=== PATIENT | female | born 1935 | race Caucasian/White ===

== ENCOUNTER 2017-01-07 15:33 | Emergency (ER) | payer MEDICARE, OTHER ==
[2017-01-07 16:50] LABS: #Basophils 0.1 thou/uL (0.0-0.2); #Lymphocytes 1.5 thou/uL (1.20-3.40); #Neutrophils 6.9 thou/uL (1.40-6.50); %Basophils 0.7 % (0.0-1.0); %Eosinophils 0.5 % (0.0-10.0); %Lymphocytes 15.7 % (21.0-51.0); %Neutrophils 73.1 % (42.0-75.0); Hemoglobin 14.7 g/dL (12.0-16.0); Mean Corpuscular HGB CONC 32.5 g/dL (32.0-36.0); Mean Corpuscular Hemoglobin 30.2 pg (27.0-31.0); Mean Corpuscular Volume 92.9 fl (81.0-99.0); Mean Platelet Volume 7.6 fL (7.4-10.4); Platelet Count 211 thou/uL (130-400); RBC Distribution Width 13.2 % (11.5-14.5); Red Blood Cell (RBC) Count 4.87 mill/uL (4.20-5.40); White Blood Cell (WBC) Count 9.5 thou/uL (4.8-10.8)
[2017-01-07 17:01] LABS: ALT (SGPT) 12 U/L (8-55); AST (SGOT) 13 U/L (5-34); Albumin 3.7 g/dL (3.4-4.8); Alkaline Phosphatase 102 U/L (40-150); Anion Gap 16 mmol/L (10-20); BUN (Urea Nitrogen) 8 mg/dL (9.8-20.1); Bilirubin, Total 0.4 mg/dL (0.2-1.2); Calc. Creatinine Clearance 0 mL/min (70-130); Calcium 8.8 mg/dL (7.8-10.44); Carbon Dioxide 23 mmol/L (23-31); Chloride 104 mmol/L (98-107); Estimated GFR-MDRD 84; Globulin 3.6 g/dL (2.4-3.5); Glucose 122 mg/dL (83-110); Potassium 3.7 mmol/L (3.5-5.1); Protein, Total 7.3 g/dL (6.0-8.3); Sodium 139 mmol/L (136-145)
[2017-01-07 17:04] LABS: Bilirubin Negative (Negative); Blood, Urine Moderate (Negative); Clarity Clear (Clear); Glucose, Urine (Dipstick) Negative (Negative); Leukocyte Negative (Negative); Nitrite Negative (Negative); Protein, Urine (Dipstick) Trace mg/dL (Neg-Trace); Urobilinogen 0.2 mg/dL (0.2-1.0); pH, Urine 8.5 (5.0-9.0)
[2017-01-07] MEDS ORDERED: Acetaminophen 500 MG TAB ONE (17:06)
[2017-01-07 17:14] LABS: Squamous Epithelial 0-3 HPF (0-3); WBC/HPF 0-3 HPF (0-3)
--- NOTE | 2017-01-07 19:27 | RAD ---
SITTING PORTABLE FRONTAL CHEST RADIOGRAPH 01/07/17 COMPARISON: 09/18/14 HISTORY: Evaluate for neck pain, fever. FINDINGS: Mild elevation of the right hemidiaphragm noted. No pneumothorax, pleural fluid, focal consolidation , or alveolar edema. There is surgical hardware overlies the right humeral head. IMPRESSION: Stable appearance of the chest - no acute findings. POS: [facility]
--- NOTE | 2017-01-07 21:44 | CT ---
CT OF CERVICAL SPINE 01/07/17 COMPARISON: None. HISTORY: Five day history of neck pain, no history of trauma or injury. TECHNIQUE: Serial axial CT imaging at 2.5 mm intervals from the thoracic inlet through the skull base without c ontrast. Coronal and sagittal reformatted imaging obtained. FINDINGS: Evaluation for central canal and/or neural foraminal stenosis is limited on routine CT. The imaged lung apices demonstrate partially visualized increased linear density within medial left upper lobe on image 74 and medial right upper lobe on image 74, incompletely assessed on this examin ation. There is moderate degenerative change at the atlantoaxial interspace. The craniocervical junction an d cervicothoracic junction appear intact. The imaged paranasal sinuses and mastoid air cells are well aerated. There is atherosclerotic calcif ication of the cavernous carotid arteries. Bilateral common carotid arteries are medialized and demonstrate a retropharyngeal course. The C1-2 articulation, dens, and occipital condyles demonstrate no acute findings. There is degenera tive osteophyte formation at the C1-2 articulation on the left. There is a metallic structure associated with the skin and soft tissues just to the left of midline posteriorly at the axial level of the C3 vertebral body, etiology uncertain. C2-3: Bilateral facet hypertrophy, right greater than left. No osseous cause of significant central canal or neural foraminal stenosis. C3-4: Bilateral facet hypertrophy, left greater than right. Probable mild left neural foraminal sten osis. No osseous cause of significant central canal or right neural foraminal stenosis. C4-5: Bilateral facet hypertrophy. Right sided uncovertebral osteophyte formation. Moderate right an d mild left neural foraminal stenosis. Probable mild central canal stenosis. C5-6: Bilateral facet and uncovertebral osteophyte formation. At least mild bilateral neural foramin al stenosis. Posterior osteophyte noted with at least mild central canal stenosis. C6-7: Prominent central posterior osteophyte. Bilateral facet and uncovertebral osteophyte formation , mild. Mild/moderate central canal stenosis suspected. Mild bilateral neural foraminal stenosis vita pected. C7-T1: Bilateral facet hypertrophy. No osseous cause of significant central canal and neural foramin al stenosis. No worrisome lytic or blastic bone lesion. No acute fracture or evidence of dislocatio n. IMPRESSION: 1. Linear density in both upper lobes, nonspecific and not well assessed on this exam. Followup chest CT on a nonemergent basis is advised for full characterization. 2. Multilevel cervical spine degenerative change with no acute fracture or evidence of dislocat ion. If symptoms persists, followup cervical spine MRI or cervical spine CT myelogram advised. Code T POS: [facility]
== END 2017-01-07 20:15 | disposition short-term general hospital (02) ==
LOC: NAV ERS 15:33
DX: M54.2 Cervicalgia (principal); R50.9 Fever, unspecified; E78.5 Hyperlipidemia, unspecified; I10 Essential (primary) hypertension; M19.90 Unspecified osteoarthritis, unspecified site; F41.9 Anxiety disorder, unspecified; F32.9 Major depressive disorder, single episode, unspecified; Z79.01 Long term (current) use of anticoagulants; Z79.899 Other long term (current) drug therapy
CPT/HCPCS: 51701; 71010; 72125; 80053; 81003; 81015; 85025; 85652; 87040; 94760; A4353

== ENCOUNTER 2018-02-10 07:54 | Outpatient (CLI) | payer MEDICARE, OTHER ==
[2018-02-10 08:05] LABS: #Basophils 0.1 thou/uL (0.0-0.2); #Eosinphils 0.3 thou/uL (0.0-0.7); #Lymphocytes 1.7 thou/uL (1.20-3.40); #Neutrophils 4.7 thou/uL (1.40-6.50); %Basophils 1.1 % (0.0-1.0); %Eosinophils 4.2 % (0.0-10.0); %Lymphocytes 21.7 % (21.0-51.0); %Monocytes 12.5 % (0.0-10.0); %Neutrophils 60.6 % (42.0-75.0); Hemoglobin 10.9 g/dL (12.0-16.0); Mean Corpuscular HGB CONC 32.6 g/dL (32.0-36.0); Mean Corpuscular Hemoglobin 31.2 pg (27.0-31.0); Mean Corpuscular Volume 95.8 fL (78.0-98.0); Mean Platelet Volume 7.9 fL (7.4-10.4); Platelet Count 216 thou/uL (130-400); RBC Distribution Width 12.9 % (11.5-14.5); Red Blood Cell (RBC) Count 3.49 mill/uL (4.20-5.40); White Blood Cell (WBC) Count 7.7 thou/uL (4.8-10.8)
== END 2018-02-10 07:55 | disposition home or self-care (01) ==
LOC: NAV NNR 07:54
PROVIDERS: ATTEND Internal Medicine
DX: A41.9 Sepsis, unspecified organism (principal); R50.9 Fever, unspecified
CPT/HCPCS: 36415; 85025

== ENCOUNTER 2019-02-07 12:32 | Outpatient (CLI) | payer MEDICARE, OTHER ==
[2019-02-07 12:58] LABS: #Eosinphils 0.2 thou/uL (0.0-0.7); #Monocytes 0.7 thou/uL (0.11-0.59); %Basophils 0.6 % (0.0-1.0); %Eosinophils 3.1 % (0.0-10.0); %Lymphocytes 24.8 % (21.0-51.0); %Monocytes 8.3 % (0.0-10.0); %Neutrophils 63.2 % (42.0-75.0); Hemoglobin 14.3 g/dL (12.0-16.0); Mean Corpuscular HGB CONC 32.1 g/dL (32.0-36.0); Mean Corpuscular Hemoglobin 31.3 pg (27.0-31.0); Mean Corpuscular Volume 97.5 fL (78.0-98.0); Mean Platelet Volume 7.2 fL (7.4-10.4); Platelet Count 226 thou/uL (130-400); RBC Distribution Width 12.5 % (11.5-14.5); Red Blood Cell (RBC) Count 4.57 mill/uL (4.20-5.40)
[2019-02-07 13:09] LABS: Anion Gap 17 mmol/L (10-20); BUN (Urea Nitrogen) 16 mg/dL (9.8-20.1); Calc. Creatinine Clearance 0 mL/min (70-130); Calcium 9.6 mg/dL (7.8-10.44); Carbon Dioxide 27 mmol/L (23-31); Chloride 100 mmol/L (98-107); Estimated GFR-MDRD 58; Glucose 121 mg/dL (83-110); Sodium 140 mmol/L (136-145)
== END 2019-02-07 12:33 | disposition home or self-care (01) ==
LOC: NAVSJIPCSP 12:32
PROVIDERS: ATTEND Family Medicine
DX: J06.9 Acute upper respiratory infection, unspecified (principal)
CPT/HCPCS: 36415; 80048; 85025

== ENCOUNTER 2020-12-17 14:46 | Emergency (ER) | payer MEDICARE, OTHER ==
[2020-12-17] MEDS ORDERED: Acetaminophen 500 MG TAB ONE (15:54)
[2020-12-17 16:29] LABS: #Eosinphils 0.1 thou/uL (0.0-0.7); #Lymphocytes 1.3 thou/uL (1.20-3.40); #Monocytes 0.6 thou/uL (0.11-0.59); #Neutrophils 4.2 thou/uL (1.40-6.50); %Basophils 0.7 % (0.0-1.0); %Eosinophils 2.3 % (0.0-10.0); %Lymphocytes 20.5 % (21.0-51.0); %Monocytes 10.1 % (0.0-10.0); %Neutrophils 66.5 % (42.0-75.0); Hemoglobin 12.7 g/dL (12.0-16.0); Mean Corpuscular Hemoglobin 29.7 pg (27.0-31.0); Platelet Count 334 thou/uL (130-400); RBC Distribution Width 14.1 % (11.5-14.5); Red Blood Cell (RBC) Count 4.29 mill/uL (4.20-5.40); White Blood Cell (WBC) Count 6.4 thou/uL (4.8-10.8)
[2020-12-17 16:34] LABS: ALT (SGPT) 12 U/L (8-55); AST (SGOT) 17 U/L (5-34); Albumin 3.6 g/dL (3.4-4.8); Alkaline Phosphatase 46 U/L (40-110); Anion Gap 12 mmol/L (10-20); BUN (Urea Nitrogen) 23 mg/dL (9.8-20.1); Bilirubin, Total 0.3 mg/dL (0.2-1.2); Calc. Creatinine Clearance 0 mL/min (70-130); Calcium 9.6 mg/dL (7.8-10.44); Carbon Dioxide 27 mmol/L (23-31); Chloride 104 mmol/L (98-107); Globulin 3.5 g/dL (2.4-3.5); Glucose 120 mg/dL (83-110); Potassium 4.1 mmol/L (3.5-5.1); Protein, Total 7.1 g/dL (5.8-8.1); Sodium 139 mmol/L (136-145)
== END 2020-12-17 17:25 | disposition home or self-care (01) ==
LOC: NAV ERS 14:46
DX: J06.9 Acute upper respiratory infection, unspecified (principal); Z20.822 Contact with and (suspected) exposure to COVID-19; E78.5 Hyperlipidemia, unspecified; I10 Essential (primary) hypertension; Z79.899 Other long term (current) drug therapy
CPT/HCPCS: 71045; 80053; 83605; 85025; 87040

== ENCOUNTER 2020-12-22 13:45 | Outpatient (CLI) | payer MEDICARE, OTHER | END 2020-12-22 13:46 | disposition home or self-care (01) | LOC: NAV RAD 13:45 | PROVIDERS: ATTEND Family Medicine | DX: R05 Cough (principal) | CPT/HCPCS: 71046 ==

== ENCOUNTER 2021-01-12 10:01 | Outpatient (CLI) | payer MEDICARE, OTHER | END 2021-01-12 10:02 | disposition home or self-care (01) | LOC: NAV CT 10:01 | PROVIDERS: ATTEND Urology | DX: N13.2 Hydronephrosis with renal and ureteral calculous obstruction (principal); K57.30 Diverticulosis of large intestine without perforation or abscess without bleeding; I70.0 Atherosclerosis of aorta; I70.8 Atherosclerosis of other arteries; N28.1 Cyst of kidney, acquired; Z96.0 Presence of urogenital implants | CPT/HCPCS: 74176 ==

== ENCOUNTER 2022-03-30 01:49 | Emergency (ER) | payer MEDICARE, OTHER ==
[2022-03-30] MEDS ORDERED: Acetaminophen 500 MG TAB ONE (02:45)
== END 2022-03-30 03:00 | disposition home or self-care (01) ==
LOC: NAV ERS 01:49
DX: H60.91 Unspecified otitis externa, right ear (principal); E78.5 Hyperlipidemia, unspecified; I10 Essential (primary) hypertension; Z79.899 Other long term (current) drug therapy
CPT/HCPCS: 99283

== ENCOUNTER 2022-06-06 14:40 | Emergency (ER) | payer MEDICARE, OTHER ==
[2022-06-06 15:52] LABS: #Basophils 0.1 thou/uL (0.0-0.2); #Eosinphils 0.2 thou/uL (0.0-0.7); #Lymphocytes 1.6 thou/uL (1.20-3.40); #Monocytes 0.7 thou/uL (0.11-0.59); #Neutrophils 2.5 thou/uL (1.40-6.50); %Basophils 1.4 % (0.0-1.0); %Eosinophils 3.6 % (0.0-10.0); %Lymphocytes 32.1 % (21.0-51.0); %Neutrophils 49.9 % (42.0-75.0); Hemoglobin 14.7 g/dL (12.0-16.0); Mean Corpuscular HGB CONC 31.9 g/dL (32.0-36.0); Mean Corpuscular Hemoglobin 31.6 pg (27.0-31.0); Mean Corpuscular Volume 99.1 fl (78.0-98.0); Mean Platelet Volume 7.7 fL (7.4-10.4); Platelet Count 212 10x3/uL (130-400); RBC Distribution Width 13.6 % (11.5-14.5); Red Blood Cell (RBC) Count 4.65 mill/uL (4.20-5.40)
[2022-06-06 15:56] LABS: INR-International Normal Ratio 1.1; Prothrombin Time 14.2 sec (12.0-14.7)
[2022-06-06 15:59] LABS: D-Dimer Test 0.43 *mcg/mL (0.27-0.43)
[2022-06-06 16:08] LABS: ALT (SGPT) 11 U/L (8-55); AST (SGOT) 16 U/L (5-34); Albumin 3.8 g/dL (3.4-4.8); Alkaline Phosphatase 63 U/L (40-110); Anion Gap 16 mmol/L (10-20); BUN (Urea Nitrogen) 26 mg/dL (9.8-20.1); Bilirubin, Total 0.3 mg/dL (0.2-1.2); Calc. Creatinine Clearance 0 mL/min (70-130); Calcium 9.6 mg/dL (7.8-10.44); Carbon Dioxide 21 mmol/L (23-31); Chloride 109 mmol/L (98-107); Estimated GFR 71; Globulin 2.7 g/dL (2.4-3.5); Glucose 105 mg/dL (83-110); Potassium 4.1 mmol/L (3.5-5.1); Protein, Total 6.5 g/dL (5.8-8.1); Sodium 142 mmol/L (136-145)
== END 2022-06-06 17:23 | disposition home or self-care (01) ==
LOC: NAV ERS 14:40
DX: S29.011A Strain of muscle and tendon of front wall of thorax, initial encounter (principal); F41.9 Anxiety disorder, unspecified; I10 Essential (primary) hypertension; E78.5 Hyperlipidemia, unspecified; E11.9 Type 2 diabetes mellitus without complications; Z86.711 Personal history of pulmonary embolism; Z79.01 Long term (current) use of anticoagulants; Z79.899 Other long term (current) drug therapy; Z79.84 Long term (current) use of oral hypoglycemic drugs; X58.XXXA Exposure to other specified factors, initial encounter
CPT/HCPCS: 36415; 71046; 80053; 84484; 85025; 85379; 85610; 93005

== ENCOUNTER 2023-12-14 09:35 | Emergency (ER) | payer MEDICARE, OTHER ==
[2023-12-14] MEDS ORDERED: predniSONE 20 MG TAB ONE (10:28)
[2023-12-14] MEDS ORDERED: hydrOXYzine 25 MG TAB ONE (10:28)
== END 2023-12-14 10:46 | disposition home or self-care (01) ==
LOC: NAV ERS 09:35
DX: L29.9 Pruritus, unspecified (principal); I10 Essential (primary) hypertension
CPT/HCPCS: 99282; J7512

== ENCOUNTER 2024-01-26 04:01 | Emergency (ER) | payer MEDICARE, OTHER ==
[2024-01-26 04:49] LABS: Hematocrit 43.1 % (36.0-47.0); Hemoglobin 14.3 g/dL (12.0-16.0); Mean Corpuscular HGB CONC 33.2 g/dL (32.0-36.0); Mean Corpuscular Hemoglobin 30.7 pg (27.0-31.0); Mean Corpuscular Volume 92.4 fl (78.0-98.0); Platelet Count 218 10x3/uL (130-400); RBC Distribution Width 12.8 % (11.5-14.5); Red Blood Cell (RBC) Count 4.67 mill/uL (4.20-5.40); White Blood Cell (WBC) Count 7.6 10x3/uL (4.8-10.8)
[2024-01-26 04:50] LABS: #Eosinphils 0.1 thou/uL (0.0-0.7); #Lymphocytes 0.3 thou/uL (1.20-3.40); #Monocytes 0.6 thou/uL (0.11-0.59); #Neutrophils 6.5 thou/uL (1.40-6.50); %Basophils 0.5 % (0.0-1.0); %Eosinophils 1.4 % (0.0-10.0); %Lymphocytes 4.5 % (21.0-51.0); %Monocytes 8.2 % (0.0-10.0); %Neutrophils 85.4 % (42.0-75.0)
[2024-01-26 04:54] LABS: INR-International Normal Ratio 1.6; Prothrombin Time 19.1 sec (12.0-14.7)
[2024-01-26 05:06] LABS: Anion Gap 17 mmol/L (10-20); BUN (Urea Nitrogen) 17 mg/dL (9.8-20.1); Calc. Creatinine Clearance 0 mL/min (70-130); Calcium 9.4 mg/dL (7.6-10.4); Carbon Dioxide 20 mmol/L (23-31); Chloride 103 mmol/L (98-107); Estimated GFR 40; Glucose 160 mg/dL (83-110); Potassium 3.2 mmol/L (3.5-5.1); Sodium 137 mmol/L (136-145)
[2024-01-26] MEDS ORDERED: Potassium Chloride 10 MEQ/100 ML PREMIX BAG ONE (06:13)
[2024-01-26] MEDS ORDERED: Potassium Chloride 20 MEQ TAB ONE (06:28)
== END 2024-01-26 09:00 | disposition home or self-care (01) ==
LOC: NAV ERS 04:01
DX: N17.9 Acute kidney failure, unspecified (principal); E87.6 Hypokalemia; R51.9 Headache, unspecified; M54.9 Dorsalgia, unspecified; I10 Essential (primary) hypertension; E78.5 Hyperlipidemia, unspecified; I48.91 Unspecified atrial fibrillation; Z79.899 Other long term (current) drug therapy; Z79.01 Long term (current) use of anticoagulants; W01.0XXA Fall on same level from slipping, tripping and stumbling without subsequent striking against object, initial encounter; Y92.009 Unspecified place in unspecified non-institutional (private) residence as the place of occurrence of the external cause
CPT/HCPCS: 70450; 71260; 72125; 74177; 80048; 85025; 85610; 93005; 96365; 96366; J3480

== ENCOUNTER 2024-02-02 13:10 | Inpatient (IN) | payer MEDICARE ==
[2024-02-02] MEDS ORDERED: Furosemide 20 MG TAB PO PRN (15:44)
[2024-02-02] MEDS ORDERED: Senokot S 8.6-50 MG TAB PO PRN (15:50)
[2024-02-02] MEDS: Ondansetron ODT 4 MG TAB PO PRN (17:15)
[2024-02-02] MEDS: ALPRAZolam 0.5 MG TAB PO SCH (20:47)
[2024-02-02] MEDS: Montelukast Sodium 10 mg Tablet PO SCH (20:47)
[2024-02-02] MEDS: Metoclopramide HCl 10 MG TAB PO SCH (20:47)
[2024-02-02] MEDS: Pantoprazole DR 40 MG TAB PO SCH (20:47)
[2024-02-02] MEDS: Fenofibrate Nanocrystallized 145 MG TAB PO SCH (20:48)
[2024-02-02] MEDS: Apixaban 5 MG TAB PO SCH (20:48)
[2024-02-02] MEDS: Amitriptyline HCl 10 MG TAB PO SCH (20:48)
[2024-02-02] MEDS ORDERED: Pantoprazole 40 MG VIAL IVP SCH (21:00)
[2024-02-03 06:08] LABS: ALT (SGPT) 9 U/L (8-55); AST (SGOT) 17 U/L (5-34); Albumin 2.5 g/dL (3.4-4.8); Alkaline Phosphatase 48 U/L (40-110); Anion Gap 12 mmol/L (10-20); BUN (Urea Nitrogen) 13 mg/dL (9.8-20.1); Bilirubin, Total 0.4 mg/dL (0.2-1.2); Calc. Creatinine Clearance 63 mL/min (70-130); Calcium 9.7 mg/dL (7.8-10.44); Carbon Dioxide 31 mmol/L (23-31); Chloride 102 mmol/L (98-107); Estimated GFR 68; Globulin 3.3 g/dL (2.4-3.5); Glucose 106 mg/dL (83-110); Protein, Total 5.8 g/dL (5.8-8.1); Sodium 141 mmol/L (136-145)
[2024-02-03 06:13] LABS: #Basophils 0.1 thou/uL (0.0-0.2); #Eosinophils 0.2 thou/uL (0.0-0.7); #Lymphocytes 0.8 thou/uL (1.20-3.40); #Monocytes 0.6 thou/uL (0.11-0.59); #Neutrophils 1.9 thou/uL (1.40-6.50); %Basophils 1.5 % (0.0-1.0); %Eosinophils 5.3 % (0.0-10.0); %Monocytes 15.9 % (0.0-10.0); %Neutrophils 54.4 % (42.0-75.0); Hematocrit 39.5 % (36.0-47.0); Hemoglobin 12.4 g/dL (12.0-16.0); Mean Corpuscular HGB CONC 31.4 g/dL (32.0-36.0); Mean Corpuscular Hemoglobin 29.4 pg (27.0-31.0); Mean Corpuscular Volume 93.6 fl (78.0-98.0); Mean Platelet Volume 6.7 fL (7.4-10.4); Platelet Count 258 10x3/uL (130-400); RBC Distribution Width 12.8 % (11.5-14.5); Red Blood Cell (RBC) Count 4.22 mill/uL (4.20-5.40); White Blood Cell (WBC) Count 3.5 10x3/uL (4.8-10.8)
[2024-02-03] MEDS: Fluticasone Propionate Nasal Spray 16 gm Bottle NASAL SCH (08:31)
[2024-02-03] MEDS: Loratadine 10 MG TAB PO SCH (08:32)
[2024-02-03] MEDS: Escitalopram Oxalate 20 mg Tablet PO SCH (08:32)
[2024-02-03] MEDS: Lisinopril 20 MG TAB PO SCH (11:01)
[2024-02-04] MEDS ORDERED: Lisinopril 20 MG TAB PO SCH (10:07)
[2024-02-04] MEDS: Lisinopril 20 MG TAB PO SCH (11:08)
[2024-02-05] MEDS: Lisinopril 20 MG TAB PO SCH (09:35)
[2024-02-08 06:22] LABS: Anion Gap 11 mmol/L (10-20); BUN (Urea Nitrogen) 18 mg/dL (9.8-20.1); Calc. Creatinine Clearance 58 mL/min (70-130); Carbon Dioxide 29 mmol/L (23-31); Chloride 104 mmol/L (98-107); Estimated GFR 62; Glucose 119 mg/dL (83-110); Sodium 140 mmol/L (136-145)
[2024-02-08 06:39] LABS: #Eosinophils 0.2 thou/uL (0.0-0.7); #Lymphocytes 0.8 thou/uL (1.20-3.40); #Monocytes 0.6 thou/uL (0.11-0.59); #Neutrophils 1.7 thou/uL (1.40-6.50); %Basophils 1.4 % (0.0-1.0); %Eosinophils 6.5 % (0.0-10.0); %Neutrophils 50.1 % (42.0-75.0); Hematocrit 36.4 % (36.0-47.0); Hemoglobin 11.6 g/dL (12.0-16.0); Mean Corpuscular HGB CONC 31.9 g/dL (32.0-36.0); Mean Corpuscular Hemoglobin 29.8 pg (27.0-31.0); Mean Corpuscular Volume 93.4 fl (78.0-98.0); Platelet Count 255 10x3/uL (130-400); Red Blood Cell (RBC) Count 3.89 mill/uL (4.20-5.40); White Blood Cell (WBC) Count 3.3 10x3/uL (4.8-10.8)
[2024-02-08] MEDS ORDERED: traMADol HCl 50 MG TAB PO PRN (14:39)
[2024-02-08] MEDS: Acetaminophen 500 MG TAB PO SCH (15:18)
[2024-02-08] MEDS: Diclofenac 1% 100 GM Topical GEL TP SCH (16:25)
[2024-02-08] MEDS: Metoclopramide HCl 10 MG TAB PO SCH (16:25)
[2024-02-11] MEDS: Acetaminophen 325 MG TAB PO PRN (21:20)
[2024-02-15 05:43] LABS: #Basophils 0.1 thou/uL (0.0-0.2); #Eosinophils 0.3 thou/uL (0.0-0.7); #Lymphocytes 1.1 thou/uL (1.20-3.40); #Monocytes 0.6 thou/uL (0.11-0.59); #Neutrophils 2.5 thou/uL (1.40-6.50); %Basophils 1.1 % (0.0-1.0); %Eosinophils 6.6 % (0.0-10.0); %Monocytes 12.8 % (0.0-10.0); %Neutrophils 55.4 % (42.0-75.0); Hematocrit 36.3 % (36.0-47.0); Hemoglobin 11.8 g/dL (12.0-16.0); Mean Corpuscular HGB CONC 32.5 g/dL (32.0-36.0); Mean Corpuscular Hemoglobin 29.7 pg (27.0-31.0); Mean Corpuscular Volume 91.5 fl (78.0-98.0); Mean Platelet Volume 6.8 fL (7.4-10.4); Platelet Count 220 10x3/uL (130-400); RBC Distribution Width 13.7 % (11.5-14.5); Red Blood Cell (RBC) Count 3.97 mill/uL (4.20-5.40); White Blood Cell (WBC) Count 4.5 10x3/uL (4.8-10.8)
[2024-02-15 05:55] LABS: Anion Gap 10 mmol/L (10-20); BUN (Urea Nitrogen) 15 mg/dL (9.8-20.1); Calc. Creatinine Clearance 58 mL/min (70-130); Calcium 9.6 mg/dL (7.8-10.44); Carbon Dioxide 27 mmol/L (23-31); Chloride 108 mmol/L (98-107); Estimated GFR 62; Glucose 113 mg/dL (83-110); Potassium 4.3 mmol/L (3.5-5.1); Sodium 141 mmol/L (136-145)
[2024-02-16 06:04] VITALS: BMI 29.7
[2024-02-16] MEDS: Lisinopril 10 MG TAB PO SCH (08:48)
[2024-02-16] MEDS: traMADol HCl 50 MG TAB PO SCH (08:52)
[2024-02-18] MEDS ORDERED: traMADol HCl 50 MG TAB PO PRN (09:32)
[2024-02-18] MEDS: traMADol HCl 50 MG TAB PO SCH (11:55)
[2024-02-19 07:04] VITALS: BMI 31.5
[2024-02-22 05:52] LABS: #Eosinophils 0.4 thou/uL (0.0-0.7); #Lymphocytes 1.1 thou/uL (1.20-3.40); #Monocytes 0.5 thou/uL (0.11-0.59); #Neutrophils 1.8 thou/uL (1.40-6.50); %Basophils 1.2 % (0.0-1.0); %Eosinophils 10.4 % (0.0-10.0); %Lymphocytes 29.1 % (21.0-51.0); %Monocytes 12.8 % (0.0-10.0); %Neutrophils 46.5 % (42.0-75.0); Hematocrit 39.3 % (36.0-47.0); Hemoglobin 12.5 g/dL (12.0-16.0); Mean Corpuscular HGB CONC 31.7 g/dL (32.0-36.0); Mean Corpuscular Hemoglobin 29.5 pg (27.0-31.0); Mean Corpuscular Volume 93.1 fl (78.0-98.0); Mean Platelet Volume 7.6 fL (7.4-10.4); Platelet Count 204 10x3/uL (130-400); RBC Distribution Width 14.1 % (11.5-14.5); Red Blood Cell (RBC) Count 4.22 mill/uL (4.20-5.40); White Blood Cell (WBC) Count 3.9 10x3/uL (4.8-10.8)
[2024-02-22 06:04] LABS: ALT (SGPT) 12 U/L (8-55); AST (SGOT) 20 U/L (5-34); Albumin 3.1 g/dL (3.4-4.8); Alkaline Phosphatase 54 U/L (40-110); Anion Gap 14 mmol/L (10-20); BUN (Urea Nitrogen) 22 mg/dL (9.8-20.1); Bilirubin, Total 0.4 mg/dL (0.2-1.2); Calc. Creatinine Clearance 55 mL/min (70-130); Calcium 9.8 mg/dL (7.8-10.44); Carbon Dioxide 28 mmol/L (23-31); Chloride 104 mmol/L (98-107); Estimated GFR 55; Globulin 3.5 g/dL (2.4-3.5); Glucose 106 mg/dL (83-110); Protein, Total 6.6 g/dL (5.8-8.1); Sodium 142 mmol/L (136-145)
[2024-02-22 13:45] VITALS: BP 111/57; TEMP 98.1
== END 2024-02-22 15:07 | disposition home or self-care (01) | DRG 947 ==
LOC: NAV ACUTE 15:16
PROVIDERS: ADMIT Family Medicine; ATTEND Family Medicine
DX: R53.81 Other malaise (principal); J96.01 Acute respiratory failure with hypoxia; E11.43 Type 2 diabetes mellitus with diabetic autonomic (poly)neuropathy; K31.84 Gastroparesis; M19.90 Unspecified osteoarthritis, unspecified site; F32.A Depression, unspecified; F41.1 Generalized anxiety disorder; K43.9 Ventral hernia without obstruction or gangrene; R32 Unspecified urinary incontinence; I10 Essential (primary) hypertension; M81.0 Age-related osteoporosis without current pathological fracture; Z79.899 Other long term (current) drug therapy; Z79.01 Long term (current) use of anticoagulants; Z90.49 Acquired absence of other specified parts of digestive tract; Z90.710 Acquired absence of both cervix and uterus; Z98.890 Other specified postprocedural states; Z66 Do not resuscitate
CPT/HCPCS: 36415; 71046; 80048; 80053; 85025; Q0162